=== PATIENT | female | born 1975 | race Hispanic/Latino ===

== ENCOUNTER 2021-01-09 10:07 | Outpatient (CLI) | payer OTHER ==
--- NOTE | 2021-01-09 13:25 | XRay Report ---
LUMBAR SPINE 3 VIEWS INDICATION / CLINICAL INFORMATION: LOW BACK PAIN. COMPARISON: None available. FINDINGS: Moderate diffuse degenerative change from L2 to L5. No other significant skeletal abnormality. Alignm ent is normal. Signer Name: Carlo Ruff MD FACR Signed: 01/09/2021 1:21 PM Workstation Name: [id number]
--- NOTE | 2021-01-09 13:25 | XRay Report ---
BILATERAL KNEES 4 VIEWS INDICATION / CLINICAL INFORMATION: BILATERAL KNEE PAIN. COMPARISON: None available. FINDINGS: Moderately advanced tricompartmental degenerative change in both knees. Signer Name: Carlo Ruff MD FACJemma Signed: 01/09/2021 1:20 PM Workstation Name: [id number]
--- NOTE | 2021-01-09 13:26 | XRay Report ---
BILATERAL ANKLES 4 VIEWS INDICATION / CLINICAL INFORMATION: BILATERAL PAIN. COMPARISON: None available. FINDINGS: Prominent posterior talar processes or os trigonum bilaterally. Degenerative change in the talonavicu lar joint of both. No other significant skeletal abnormality Signer Name: Carlo Ruff MD FACJemma Signed: 01/09/2021 1:22 PM Workstation Name: [id number]
--- NOTE | 2021-01-09 13:27 | XRay Report ---
THORACIC SPINE 3 VIEWS INDICATION / CLINICAL INFORMATION: BACK PAIN. COMPARISON: None available. FINDINGS: Mild to moderate diffuse degenerative change. No other significant skeletal abnormality. Alignment is normal. Signer Name: Carlo Ruff MD FACJemma Signed: 01/09/2021 1:22 PM Workstation Name: [id number]
--- NOTE | 2021-01-09 13:27 | XRay Report ---
CERVICAL SPINE 3 VIEWS INDICATION / CLINICAL INFORMATION: NECK PAIN. COMPARISON: None available. FINDINGS: Mild degenerative change in the mid cervical region. No other significant skeletal abnormality. Align ment is normal. Signer Name: Carlo Ruff MD FACR Signed: 01/09/2021 1:23 PM Workstation Name: [id number]
== END 2021-01-09 10:08 | disposition home or self-care (01) ==
LOC: XRAY 10:07
PROVIDERS: ATTEND Internal Medicine
DX: M17.0 Bilateral primary osteoarthritis of knee (principal); M47.812 Spondylosis without myelopathy or radiculopathy, cervical region; M19.071 Primary osteoarthritis, right ankle and foot; M19.072 Primary osteoarthritis, left ankle and foot; M47.817 Spondylosis without myelopathy or radiculopathy, lumbosacral region
CPT/HCPCS: 72040; 72070; 72100